=== PATIENT | female | born 1980 | race Caucasian/White ===

== ENCOUNTER 2020-08-20 06:00 | Outpatient (CLI) | payer BC ==
[~2020-08-20] VITALS: Ht 175.3 cm; Wt 73.0 kg
[2020-08-20] MEDS ORDERED: LIOT5TAB10 PO (10:42)
[2020-08-20] MEDS ORDERED: L.AC1CAP6 PO (10:42)
== END 2020-08-20 10:59 | disposition home or self-care (01) ==
LOC: PREOP 06:00
PROVIDERS: ATTEND Surgery
DX: Z01.818 Encounter for other preprocedural examination (principal)

== ENCOUNTER 2020-09-10 09:04 | Day surgery (SDC) | payer BC ==
[2020-09-10] VITALS (8 sets, daily range): BP systolic 91–112; BP diastolic 48–84
[~2020-09-10] VITALS: Ht 175 cm; Wt 73.0 kg
[~2020-09-10 09:04] MED LIST: L.AC1CAP6 PO; LIOT5TAB10 PO
[2020-09-10] MEDS ORDERED: ceFAZolin INJECTION 1,000 MG in WATER (STERILE) FOR INJECTION 10 ML IV ONE (09:30)
[2020-09-10] MEDS ORDERED: ONDANSETRON 4 MG/2 ML (SDV) Z0FRAN ONE (09:43)
[2020-09-10] MEDS ORDERED: fentaNYL INJ 100 MCG/2 ML AMP ONE (09:43)
[2020-09-10] MEDS ORDERED: LIDOCAINE PF 2% 5 ML (XYLOCAINE) VIAL ONE (09:43)
[2020-09-10] MEDS ORDERED: SEVOFLURANE (ULTANE) 15 ML INHAL SOLN ONE (09:43)
[2020-09-10] MEDS ORDERED: proPOfol 200 MG/20 ML (DIPRIVAN) VIAL IV ONE (09:43)
[2020-09-10] MEDS ORDERED: MIDAZOLAM 2 MG/2 ML (VERSED) VIAL ONE (09:44)
[2020-09-10] MEDS ORDERED: LIDOCAINE/EPI 1%-1:100,000 (XYLOCAINE) 20ML ONE (09:54)
[2020-09-10] MEDS: LACTATED RINGERS 1,000 ML IV PRN ×2 (09:57→11:49)
--- NOTE | 2020-09-10 10:35 | Progress Note-Pre Operative ---
Pre-Operative Progress Note H&P Reviewed The H&P was reviewed, patient examined and no changes noted. Date Seen by Provider: Sep 10, 2020 Time Seen by Provider: 10:34 Date H&P Reviewed: Sep 10, 2020 Time H&P Reviewed: 10:34 Pre-Operative Diagnosis: right arm mass THIAGO BENITEZ DO Sep 10, 2020 10:34
--- NOTE | 2020-09-10 11:03 | Progress Note-Post Operative ---
Post-Operative Progess Note Surgeon (s)/Director Housekeeping (s) Surgeon HTIAGO BENITEZ DO Director Housekeeping: na Pre-Operative Diagnosis right arm mass Post-Operative Diagnosis same Procedure & Operative Findings Date of Procedure 09/10/20 Procedure Performed/Findings excision right arm mass subcutaneous layer [id number] Anesthesia Type mac c local Estimated Blood Loss Estimated blood loss (mL): minimal Specimens/Packing Specimens Removed right arm mass THIAGO BENITEZ DO Sep 10, 2020 11:03
[2020-09-10] MEDS ORDERED: MEPERIDINE (DEMEROL) INJ 50 MG/ML IVP ONE (11:15)
[2020-09-10] MEDS ORDERED: ONDANSETRON 4 MG/2 ML (SDV) Z0FRAN IVP PRN (11:15)
[2020-09-10] MEDS ORDERED: morphine INJ 10 MG/ML 1ML (SYR OR VIAL) IVP ONE (11:15)
--- NOTE | 2020-09-10 11:15 | Anesthesia-General Post-Op ---
General Patient Condition Mental Status/LOC: Same as Preop Cardiovascular: Satisfactory Nausea/Vomiting: Absent Respiratory: Satisfactory Pain: Controlled Complications: Absent Post Op Complications Complications None Follow Up Care/Instructions Patient Instructions None needed. Anesthesia/Patient Condition Patient Condition Patient is doing well, no complaints, stable vital signs, no apparent adverse anesthesia problems. No complications reported per nursing. GIORGIO MARSHALL CRNA Sep 10, 2020 11:15
--- NOTE | 2020-09-10 18:40 | OPERATIVE REPORT ---
DATE OF SERVICE: 09/10/2020 PREOPERATIVE DIAGNOSIS: Right arm mass. POSTOPERATIVE DIAGNOSIS: Right arm mass. PROCEDURE: Excision of right arm mass, subcutaneous layer, 5.5 x 3 x 2 cm. SURGEON: Thiago Espinosa DO ANESTHESIA: General. ESTIMATED BLOOD LOSS: Minimal. COMPLICATIONS: None. INDICATIONS: The patient is a 39-year-old female with a right arm mass which continued to increase in size. She understands risks and benefits of procedure and wished to proceed with procedure. Consent was signed in the chart. DESCRIPTION OF PROCEDURE: The patient was taken to the operating suite, prepped and draped in sterile fashion. Timeout was performed. Local anesthetic was infiltrated around the mass. A 15 blade scalpel was used to make a small skin incision and cautery was used to dissect down through the subcutaneous tissues when a lipomatous mass was encountered. This was able to be dissected around and removed in its entirety. Hemostasis was achieved. The wound was irrigated with copious amounts of irrigation. Skin was then closed using 4-0 Monocryl in a running subcuticular fashion. The area was washed and dried and Skin Affix was placed over the incision. The patient tolerated procedure well without any complications. She was taken to recovery room in stable condition. Job ID: [id number] DocumentID: [id number] Dictated Date: 09/10/2020 11:08:02 Education And Development Manager Date: 09/10/2020 18:39:17 Dictated By: THIAGO ESPINOSA DO
== END 2020-09-10 12:30 | disposition home or self-care (01) ==
LOC: SDC 09:04
PROVIDERS: ATTEND Surgery
DX: D17.21 Benign lipomatous neoplasm of skin and subcutaneous tissue of right arm (principal); Z79.890 Hormone replacement therapy; Z79.899 Other long term (current) drug therapy; Z82.49 Family history of ischemic heart disease and other diseases of the circulatory system
CPT/HCPCS: 84703; 87081; 88304